=== PATIENT | male | born 1975 | race Caucasian/White ===

== ENCOUNTER 2016-07-14 01:56 | Emergency (ER) | payer SELFPAY ==
[~2016-07-14] VITALS: Ht 182.9 cm; Wt 108.9 kg
[2016-07-14] MEDS ORDERED: HTN (02:18)
[2016-07-14 02:52] LABS: BASOPHILS % (AUTO) 0.3 % (0.0-2.0); EOSINOPHILS # (AUTO) 0.1 K/uL (0.0-0.7); EOSINOPHILS % (AUTO) 0.9 % (0.0-7.0); HEMATOCRIT 44.3 % (36.7-47.1); HEMOGLOBIN 15.4 g/dL (12.5-16.3); LYMPHOCYTES # (AUTO) 2.2 K/uL (20.0-40.0); LYMPHOCYTES % (AUTO) 21.9 % (20.5-51.5); MEAN CORPUSCULAR HEMOGLOBIN 31.1 uug (23.8-33.4); MEAN CORPUSCULAR HGB CONC 35 g/dL (32.5-36.3); MEAN CORPUSCULAR VOLUME 89.8 fL (73.0-96.2); MONOCYTES # (AUTO) 0.4 K/uL (2.0-10.0); MONOCYTES % (AUTO) 3.8 % (0.0-11.0); NEUTROPHILS # (AUTO) 7.4 K/uL (1.8-8.9); NEUTROPHILS % (AUTO) 73.1 % (38.5-71.5); PLATELET COUNT (AUTO) 234 K/uL (152-348); RED BLOOD CELL COUNT(AUTO) 4.94 MIL/uL (4.06-5.63); RED CELL DISTRIBUTION WIDTH 12.6 % (12.1-16.2); WHITE BLOOD COUNT (AUTO) 10.1 K/uL (3.6-10.2)
--- NOTE | 2016-07-14 03:00 | NUR ---
PT REFUSED TO BE ADMITTED. DR MAHARAJ INTO SPEAK WITH PATIENT
--- NOTE | 2016-07-14 03:01 | NUR ---
PT REFUSED TO HAVE CT SCAN AND WAIT FOR LAB RESULT. DR MAHARAJ AWARE
[2016-07-14 03:02] LABS: ALBUMIN 4.2 g/dL (3.4-5.0); BILIRUBIN,TOTAL 0.5 mg/dL (0.2-1.0); CALCIUM 9.1 mg/dL (8.5-10.1); POTASSIUM 4.1 mmol/L (3.5-5.1)
--- NOTE | 2016-07-14 03:02 | NUR ---
IV removed. Catheter intact and site benign. Pressure and 4x4 gauze applied to site. No bleeding noted.
[2016-07-14 03:07] VITALS: BP 122/77
--- NOTE | 2016-07-14 03:08 | NUR ---
Patient does not wish to proceed with medical care recommended by Dr. ARIAS ). Patient given information related to possible complications, up to and including , which could occur as a result of leaving the hospital at this time. Patient verbalizes understanding of risks involved due to leaving against medical advice. Patient has signed AMA form.
[2016-07-14 03:13] LABS: CREATININE 1.5 mg/dL (0.6-1.3)
== END 2016-07-14 03:09 | disposition home or self-care (01) ==
LOC: ER 01:58
DX: R55 Syncope and collapse (principal); I95.9 Hypotension, unspecified
CPT/HCPCS: 36415; 70030-TC; 85025; 85610; 93005; A4663